=== PATIENT | male | born 1965 | race Caucasian/White ===

== ENCOUNTER 2017-12-07 14:49 | Inpatient (IN) | payer SELFPAY ==
[~2017-12-07] VITALS: Ht 188 cm; Wt 136.4 kg
[~2017-12-07 14:49] MED LIST: GABA100 PO; GEMF600 PO; INSU100I6; LISI5 PO; METF500 PO; NAPR550 PO; OXYACE5T PO; Percocet 5-3251 EACH PO; RXNAPNA550 PO; RXOXYACE PO; Zantac150 MG PO; Zofran Odt8 MG SL
[2017-12-07 15:41] LABS: Source, Urine Clean Catch
[2017-12-07 15:48] LABS: Appearance, Urine Hazy (Clear); Bilirubin, Urine Neg (Neg); Blood, Urine 4+ (Neg); Color, Urine Yellow (P-Yellow); Glucose Qualitative, Urine 4+ (Neg); Ketones, Urine 3+ (Neg); Leukocyte Esterase, Urine 1+ (Neg); Nitrite, Urine Neg (Neg); Protein, Urine 2+ (Neg); Specific Gravity, Urine 1.025 (1.003-1.022); Urobilinogen, Urine NORM (Normal)
[2017-12-07 16:07] LABS: Amorphous Mod (0-Heavy); Granular Casts 0-2 /lpf (0); Mucus Light (0-Heavy)
[2017-12-07 16:08] LABS: Bacteria Few /hpf; Squamous Epithelial Cells Few /hpf (Few)
[2017-12-07 16:52] LABS: BASOPHILS ABSOLUTE AUTO 0.05 K/mm3 (0.00-0.23); BASOPHILS PERCENT AUTO 0 % (0-2); EOSINOPHILS ABSOLUTE AUTO 0.12 K/mm3 (0.00-0.68); EOSINOPHILS PERCENT AUTO 1 % (0-6); Hematocrit 43.5 % (37.0-53.0); IMMATURE GRAN ABSOLUTE AUTO 0.12 K/mm3 (0.00-0.10); IMMATURE GRAN PERCENT AUTO 1 % (0-1); LYMPHOCYTES PERCENT AUTO 11 % (21-46); MONOCYTES ABSOLUTE AUTO 1.03 K/mm3 (0.16-1.47); MONOCYTES PERCENT AUTO 6 % (4-13); Mean Corpuscular Volume 90 fL (80-100); Mean Platelet Volume 10.1 fL (9.1-12.4); NEUTROPHILS ABSOLUTE AUTO 13.41 K/mm3 (1.96-9.15); NEUTROPHILS PERCENT AUTO 81 % (41-73); Platelet Count 280 K/mm3 (150-400); RDW Coefficient Variation 14.1 % (11.7-14.2); RDW Standard Deviation 45.7 fL (35.1-46.3); Red Blood Cell Count 4.82 M/mm3 (4.30-5.90); White Blood Cell Count 16.53 K/mm3 (4.00-11.30)
[2017-12-07 17:14] LABS: Mean Corpuscular HGB 31.2 pg (26.0-34.0)
[2017-12-07 17:15] LABS: Hemoglobin 14.7 g/dL (13.5-17.5); Mean Corpuscular HGB Conc 34.5 g/dL (31.5-36.5)
[2017-12-07 17:42] LABS: Alanine Aminotransfer (ALT/SGP 65 U/L (12-78); Albumin, Blood 3.3 g/dL (3.4-5.0); Albumin/Globulin Ratio 0.7 (0.8-1.8); Alk Phos 69 U/L (50-136); Anion Gap 9 mmol/L (6-16); Aspartate Aminotrans (AST/SGOT 160 U/L (12-37); Bilirubin, Total 0.6 mg/dL (0.1-1.0); Blood Urea Nitrogen 16 mg/dL (8-24); Bun/Creatinine Ratio 26.8 (12.0-20.0); CO2, Blood 21 mmol/L (21-32); Chloride, Blood 104 mmol/L (98-108); Globulin, Blood 4.8 g/dL (2.2-4.0); Glomerular Filtration Rate >60 (60-); Glucose, Blood 263 mg/dL (70-99); Sodium, Blood 134 mmol/L (136-145); Total Protein, Blood 8.1 g/dL (6.4-8.2)
[2017-12-07 17:46] LABS: Potassium, Blood 6.8 mmol/L (3.5-5.5)
[2017-12-07 18:50] LABS: Potassium, Blood 8.7 mmol/L (3.5-5.5)
[2017-12-07 19:30] LABS: Calcium, Ionized (POC) 0.97 mmol/L (1.10-1.46); Chloride (POC) 102 mmol/L (98-108); Creatinine (POC) 0.7 mg/dL (0.8-1.3); Glucose (ISTAT POC) 237 mg/dL (70-99); Potassium (POC) 4.8 mmol/L (3.5-5.5); Sodium (POC) 133 mmol/L (135-148); Total CO2 (POC) 25 mmol/L (21-32)
[2017-12-07 20:43] LABS: Cholesterol 212 mg/dL (50-200); Triglycerides 2318 mg/dL (30-160)
[2017-12-07 22:33] LABS: Albumin, Blood 2.9 g/dL (3.4-5.0); Anion Gap 10 mmol/L (6-16); Blood Urea Nitrogen 14 mg/dL (8-24); Bun/Creatinine Ratio 23.5 (12.0-20.0); CO2, Blood 20 mmol/L (21-32); Chloride, Blood 107 mmol/L (98-108); Glomerular Filtration Rate >60 (60-); Glucose, Blood 232 mg/dL (70-99); Phosphorus, Blood 3.5 mg/dL (2.5-4.9); Sodium, Blood 137 mmol/L (136-145)
[2017-12-07 22:49] LABS: Potassium, Blood 6.3 mmol/L (3.5-5.5)
[2017-12-07 23:39] LABS: International Normalized Ratio 1.07
[2017-12-08 02:31] LABS: BASOPHILS ABSOLUTE AUTO 0.04 K/mm3 (0.00-0.23); BASOPHILS PERCENT AUTO 0 % (0-2); EOSINOPHILS ABSOLUTE AUTO 0.15 K/mm3 (0.00-0.68); EOSINOPHILS PERCENT AUTO 1 % (0-6); Hematocrit 41.4 % (37.0-53.0); Hemoglobin 14.5 g/dL (13.5-17.5); IMMATURE GRAN ABSOLUTE AUTO 0.13 K/mm3 (0.00-0.10); IMMATURE GRAN PERCENT AUTO 1 % (0-1); LYMPHOCYTES ABSOLUTE AUTO 1.94 K/mm3 (0.84-5.20); LYMPHOCYTES PERCENT AUTO 13 % (21-46); MONOCYTES ABSOLUTE AUTO 0.85 K/mm3 (0.16-1.47); MONOCYTES PERCENT AUTO 6 % (4-13); Mean Corpuscular HGB 32.6 pg (26.0-34.0); Mean Platelet Volume 9.8 fL (9.1-12.4); NEUTROPHILS ABSOLUTE AUTO 11.71 K/mm3 (1.96-9.15); NEUTROPHILS PERCENT AUTO 79 % (41-73); Platelet Count 203 K/mm3 (150-400); RDW Coefficient Variation 14.1 % (11.7-14.2); RDW Standard Deviation 47.4 fL (35.1-46.3); Red Blood Cell Count 4.45 M/mm3 (4.30-5.90); White Blood Cell Count 14.82 K/mm3 (4.00-11.30)
[2017-12-08 02:43] LABS: Mean Corpuscular Volume 93 fL (80-100)
[2017-12-08 03:17] LABS: Alanine Aminotransfer (ALT/SGP 48 U/L (12-78); Albumin, Blood 3.1 g/dL (3.4-5.0); Albumin/Globulin Ratio 0.9 (0.8-1.8); Alk Phos 64 U/L (50-136); Anion Gap 12 mmol/L (6-16); Aspartate Aminotrans (AST/SGOT 37 U/L (12-37); Bilirubin, Total 0.7 mg/dL (0.1-1.0); Blood Urea Nitrogen 13 mg/dL (8-24); CO2, Blood 21 mmol/L (21-32); Calcium, Blood 7.7 mg/dL (8.5-10.1); Chloride, Blood 105 mmol/L (98-108); Creatinine, Blood 0.69 mg/dL (0.60-1.20); Globulin, Blood 3.4 g/dL (2.2-4.0); Glomerular Filtration Rate >60 (60-); Glucose, Blood 248 mg/dL (70-99); Phosphorus, Blood 2.7 mg/dL (2.5-4.9); Sodium, Blood 138 mmol/L (136-145); Total Protein, Blood 6.5 g/dL (6.4-8.2); Triglycerides 1081 mg/dL (30-160)
[2017-12-08 06:20] LABS: International Normalized Ratio 1.09; Prothrombin Time Results 11.2 Sec (9.7-11.5)
[2017-12-08 06:23] LABS: Albumin, Blood 2.9 g/dL (3.4-5.0); Anion Gap 7 mmol/L (6-16); Blood Urea Nitrogen 12 mg/dL (8-24); Bun/Creatinine Ratio 16.7 (12.0-20.0); CO2, Blood 26 mmol/L (21-32); Calcium, Blood 7.8 mg/dL (8.5-10.1); Chloride, Blood 103 mmol/L (98-108); Creatinine, Blood 0.72 mg/dL (0.60-1.20); Glomerular Filtration Rate >60 (60-); Glucose, Blood 211 mg/dL (70-99); Potassium, Blood 3.6 mmol/L (3.5-5.5); Sodium, Blood 136 mmol/L (136-145)
[2017-12-08 10:18] LABS: Albumin, Blood 2.8 g/dL (3.4-5.0); Anion Gap 9 mmol/L (6-16); Blood Urea Nitrogen 12 mg/dL (8-24); Bun/Creatinine Ratio 14.8 (12.0-20.0); CO2, Blood 25 mmol/L (21-32); Calcium, Blood 7.7 mg/dL (8.5-10.1); Chloride, Blood 102 mmol/L (98-108); Creatinine, Blood 0.81 mg/dL (0.60-1.20); Glomerular Filtration Rate >60 (60-); Glucose, Blood 275 mg/dL (70-99); Phosphorus, Blood 2.4 mg/dL (2.5-4.9); Potassium, Blood 3.8 mmol/L (3.5-5.5); Sodium, Blood 136 mmol/L (136-145)
[2017-12-09 04:07] LABS: Mean Platelet Volume 9.7 fL (9.1-12.4); Platelet Count 160 K/mm3 (150-400)
[2017-12-09 10:43] LABS: Triglycerides 581 mg/dL (30-160)
[2017-12-10 04:56] LABS: Triglycerides 615 mg/dL (30-160)
[2017-12-10 04:59] LABS: International Normalized Ratio 1.06; Prothrombin Time Results 10.9 Sec (9.7-11.5)
[2017-12-11 05:16] LABS: Hemoglobin 12.2 g/dL (13.5-17.5); Mean Platelet Volume 9.3 fL (9.1-12.4); Platelet Count 220 K/mm3 (150-400)
[2017-12-11 05:27] LABS: International Normalized Ratio 1.51; Prothrombin Time Results 15.2 Sec (9.7-11.5)
[2017-12-11 05:36] LABS: Alanine Aminotransfer (ALT/SGP 33 U/L (12-78); Albumin, Blood 2.6 g/dL (3.4-5.0); Albumin/Globulin Ratio 0.6 (0.8-1.8); Alk Phos 57 U/L (50-136); Anion Gap 9 mmol/L (6-16); Aspartate Aminotrans (AST/SGOT 45 U/L (12-37); Bilirubin, Total 0.5 mg/dL (0.1-1.0); Blood Urea Nitrogen 12 mg/dL (8-24); Bun/Creatinine Ratio 15.6 (12.0-20.0); CO2, Blood 26 mmol/L (21-32); Calcium, Blood 8.5 mg/dL (8.5-10.1); Chloride, Blood 103 mmol/L (98-108); Creatinine, Blood 0.77 mg/dL (0.60-1.20); Globulin, Blood 4.3 g/dL (2.2-4.0); Glomerular Filtration Rate >60 (60-); Glucose, Blood 202 mg/dL (70-99); Potassium, Blood 3.9 mmol/L (3.5-5.5); Sodium, Blood 138 mmol/L (136-145); Total Protein, Blood 6.9 g/dL (6.4-8.2)
[2017-12-12 05:18] LABS: International Normalized Ratio 2.62; Prothrombin Time Results 25.6 Sec (9.7-11.5)
[2017-12-12] MEDS ORDERED: Metformin HCl500 MG PO (14:33)
[2017-12-12] MEDS ORDERED: FAMO20 PO (14:33)
[2017-12-12] MEDS ORDERED: GEMF600 PO (14:33)
[2017-12-12] MEDS ORDERED: WARF4 PO (14:34)
== END 2017-12-12 15:31 | disposition home or self-care (01) | DRG 439 ==
LOC: ER 14:49 → ICUE 21:43 → ICUW 21:43 → ICUE 22:12 → MEDS 12-09 14:50 → ENPENDDIS 12-12 10:15 → MEDS 12-12 15:31
PROVIDERS: Emergency Medicine; Family Medicine; Internal Medicine; Internal Medicine Gastroenterology; Nurse Practitioner Acute Care
PROC: 0DJ08ZZ Inspection of Upper Intestinal Tract, Via Natural or Artificial Opening Endoscopic (ICD-10-PCS; principal; 2017-12-09 09:00)
DX: K85.90 Acute pancreatitis without necrosis or infection, unspecified (principal); I82.890 Acute embolism and thrombosis of other specified veins; K22.10 Ulcer of esophagus without bleeding; E78.1 Pure hyperglyceridemia; E11.65 Type 2 diabetes mellitus with hyperglycemia; G47.33 Obstructive sleep apnea (adult) (pediatric); I10 Essential (primary) hypertension; F17.210 Nicotine dependence, cigarettes, uncomplicated; R16.0 Hepatomegaly, not elsewhere classified; E66.01 Morbid (severe) obesity due to excess calories; Z68.38 Body mass index [BMI] 38.0-38.9, adult
CPT/HCPCS: 36415; 74177; 80047; 80048; 80053; 80069; 81001; 82465; 82947; 83036; 83605; 83690; 84100; 84132; 84478; 85014; 85018; 85025; 85049; 85610; 85730; 86140; 87040; 87086; 93005; 93010; 94640; 94660; 94762; 96361; 96374; 96375; 96376; 99285-25; J0696; J1644; J1650; J1815; J2250; J2405; J3010; J7030; J7042; J7060; J7120; Q9967

== ENCOUNTER → 2018-05-24 | Outpatient (CLI) | payer OTHER ==
[~2018-05-24] MED LIST changes: +FAMO20 PO; +Metformin HCl500 MG PO; +Percocet 10-321 EACH PO; +WARF4 PO
== END | disposition home or self-care (01) ==
LOC: LAB 14:09 → LAB SHORT 14:09
DX: E11.9 Type 2 diabetes mellitus without complications (principal); Z79.4 Long term (current) use of insulin
CPT/HCPCS: 82043

== ENCOUNTER 2019-03-03 19:24 | Emergency (ER) | payer OTHER ==
[~2019-03-03] VITALS: Ht 188 cm; Wt 131.5 kg
[2019-03-03] MEDS ORDERED: Keflex500 MG PO (21:33)
== END 2019-03-03 21:46 | disposition home or self-care (01) ==
LOC: ER 19:24
DX: L05.01 Pilonidal cyst with abscess (principal); F17.200 Nicotine dependence, unspecified, uncomplicated; Z79.899 Other long term (current) drug therapy; Z79.84 Long term (current) use of oral hypoglycemic drugs; Z79.01 Long term (current) use of anticoagulants
CPT/HCPCS: 10060; 99282-25; A9270

== ENCOUNTER 2019-03-04 04:26 | Inpatient (IN) | payer OTHER ==
[~2019-03-04] VITALS: Ht 188 cm; Wt 129.5 kg
[~2019-03-04 04:26] MED LIST changes: +Keflex500 MG PO
[2019-03-04 05:37] LABS: Source, Urine Voided
[2019-03-04 05:46] LABS: Blood, Urine 3+ (Neg); Glucose Qualitative, Urine 3+ (Neg); Ketones, Urine 3+ (Neg); Leukocyte Esterase, Urine 1+ (Neg); Nitrite, Urine Pos (Neg); Protein, Urine 3+ (Neg); Urobilinogen, Urine 1+ (Normal)
[2019-03-04 06:10] LABS: BASOPHILS ABSOLUTE AUTO 0.05 K/mm3 (0.00-0.23); BASOPHILS PERCENT AUTO 0 % (0-2); EOSINOPHILS ABSOLUTE AUTO 0.14 K/mm3 (0.00-0.68); EOSINOPHILS PERCENT AUTO 1 % (0-6); Hematocrit 43.5 % (37.0-53.0); IMMATURE GRAN ABSOLUTE AUTO 0.07 K/mm3 (0.00-0.10); IMMATURE GRAN PERCENT AUTO 1 % (0-1); LYMPHOCYTES ABSOLUTE AUTO 1.64 K/mm3 (0.84-5.20); LYMPHOCYTES PERCENT AUTO 12 % (21-46); MONOCYTES PERCENT AUTO 6 % (4-13); Mean Corpuscular HGB 31.2 pg (26.0-34.0); Mean Corpuscular HGB Conc 33.8 g/dL (31.5-36.5); Mean Corpuscular Volume 92 fL (80-100); Mean Platelet Volume 10.3 fL (9.1-12.4); NEUTROPHILS ABSOLUTE AUTO 10.91 K/mm3 (1.96-9.15); NEUTROPHILS PERCENT AUTO 80 % (41-73); NRBC ABSOLUTE 0.04 K/mm3 (0.00-0.02); NRBC Auto 0.3 /100 WBC (0.0-0.2); Platelet Count 314 K/mm3 (150-400); RDW Coefficient Variation 14.6 % (11.7-14.2); RDW Standard Deviation 48.4 fL (35.1-46.3); Red Blood Cell Count 4.71 M/mm3 (4.30-5.90); White Blood Cell Count 13.61 K/mm3 (4.00-11.30)
[2019-03-04 06:12] LABS: Bilirubin, Urine 1+ (Neg)
[2019-03-04 06:13] LABS: Appearance, Urine Cloudy (Clear); Color, Urine Amber (P-Yellow)
[2019-03-04 06:14] LABS: U Amphetamine Screen Not Detected; U Barbituate Screen Not Detected; U Benzodiazapine Screen Not Detected; U Buprenorphine Screen Not Detected; U Cannabinoids Screen Not Detected; U Cocaine Screen Not Detected; U Methadone Screen Not Detected; U Methamphetamine Screen Not Detected; U Opiates Screen Not Detected; U Oxycodone Screen DETECTED; U Phencyclidine Screen Not Detected; U Propoxyphene Screen Not Detected
[2019-03-04 06:16] LABS: Amorphous Heavy (0-Heavy); Bacteria Mod /hpf; Red Blood Cells, Urine 0-2 /hpf (0-2); Squamous Epithelial Cells Rare /hpf (Few); White Blood Cells, Urine 0-2 /hpf (0-5)
[2019-03-04 06:20] LABS: Hemoglobin 14.7 g/dL (13.5-17.5)
[2019-03-04 06:30] LABS: Alanine Aminotransfer (ALT/SGP 25 U/L (12-78); Albumin, Blood 3.7 g/dL (3.4-5.0); Alk Phos 77 U/L (50-136); Anion Gap 10 mmol/L (6-16); Aspartate Aminotrans (AST/SGOT 25 U/L (12-37); Bilirubin, Total 0.7 mg/dL (0.1-1.0); Blood Urea Nitrogen 11 mg/dL (8-24); Bun/Creatinine Ratio 14.1 (12.0-20.0); CO2, Blood 23 mmol/L (21-32); Calcium, Blood 8.4 mg/dL (8.5-10.1); Chloride, Blood 104 mmol/L (98-108); Creatinine, Blood 0.78 mg/dL (0.60-1.20); Ethanol (Alcohol), Blood, Med <3 mg/dL; Globulin, Blood 3.8 g/dL (2.2-4.0); Glomerular Filtration Rate >60 (60-); Glucose, Blood 225 mg/dL (70-99); Sodium, Blood 137 mmol/L (136-145); Total Protein, Blood 7.5 g/dL (6.4-8.2)
[2019-03-04 09:51] LABS: CHOL/HDL RATIO 6.3; Cholesterol 95 mg/dL (50-200); HDL Cholesterol 15 mg/dL (>39); LDL/HDL RATIO Unable to Calculate; Triglycerides 519 mg/dL (30-160); Very Low Density Lipoprot Chol 104 mg/dL (6-32)
[2019-03-04 09:53] LABS: Low Density Lipoprotein Chol Unable to Calculate mg/dL (0-110)
--- NOTE | 2019-03-04 18:11 | NUR ---
SHIFT SUMMARY PATIENT IS PLEASANT, NO ACUTE CONCERNS AT THIS TIME. PATIENT IS NEW ADMIT FROM THE ER TODAY. HE IS NPO DUE TO PANCREATITIS. HE HAS A BOIL THAT WAS LANCED ON HIS BOTTOM AND IS CURRENTLY DRESSED.
--- NOTE | 2019-03-05 05:40 | NUR ---
SUMMARY: A/OX4, INDEPENDENT IN ROOM AND CALLS APPROPRIATELY. HE REMAINS NPO X ICE W/NS INFUSING AT 125 ML/HR. CHEMBG'S ARE STABLE. DILUADID RECIEVED X2 DOSES FOR TOLERABLE CONTROL OF ABDO PAIN. PT DENIES N/V. HE REMAINED ON 2L O2, FAMILY STILL NEEDS TO BRING IN HOME CPAP AND PT AWARE. DX REMAINS C/D/I TO BUTTOCKS WHERE BOIL WAS LANCED IN ER. MD TO WRITE DX CHANGE ORDERS TODAY. NO ACUTE CHANGES, VSS/AFEBRILE. WCTM AND REPORT TO DAY RN.
[2019-03-05 05:47] LABS: BASOPHILS ABSOLUTE AUTO 0.03 K/mm3 (0.00-0.23); BASOPHILS PERCENT AUTO 0 % (0-2); EOSINOPHILS PERCENT AUTO 1 % (0-6); Hematocrit 41.9 % (37.0-53.0); IMMATURE GRAN ABSOLUTE AUTO 0.06 K/mm3 (0.00-0.10); IMMATURE GRAN PERCENT AUTO 1 % (0-1); LYMPHOCYTES ABSOLUTE AUTO 1.29 K/mm3 (0.84-5.20); LYMPHOCYTES PERCENT AUTO 11 % (21-46); MONOCYTES ABSOLUTE AUTO 1.06 K/mm3 (0.16-1.47); MONOCYTES PERCENT AUTO 9 % (4-13); Mean Corpuscular HGB 32.1 pg (26.0-34.0); Mean Corpuscular HGB Conc 33.4 g/dL (31.5-36.5); Mean Platelet Volume 9.9 fL (9.1-12.4); NEUTROPHILS ABSOLUTE AUTO 9.62 K/mm3 (1.96-9.15); NEUTROPHILS PERCENT AUTO 79 % (41-73); Platelet Count 161 K/mm3 (150-400); RDW Coefficient Variation 14.3 % (11.7-14.2); RDW Standard Deviation 50.9 fL (35.1-46.3); Red Blood Cell Count 4.36 M/mm3 (4.30-5.90); White Blood Cell Count 12.16 K/mm3 (4.00-11.30)
[2019-03-05 05:49] LABS: Mean Corpuscular Volume 96 fL (80-100)
[2019-03-05 06:08] LABS: Albumin, Blood 2.8 g/dL (3.4-5.0); Anion Gap 5 mmol/L (6-16); Blood Urea Nitrogen 8 mg/dL (8-24); Bun/Creatinine Ratio 10.3 (12.0-20.0); CO2, Blood 27 mmol/L (21-32); Calcium, Blood 8.2 mg/dL (8.5-10.1); Chloride, Blood 104 mmol/L (98-108); Creatinine, Blood 0.77 mg/dL (0.60-1.20); Glomerular Filtration Rate >60 (60-); Glucose, Blood 188 mg/dL (70-99); Sodium, Blood 136 mmol/L (136-145)
--- NOTE | 2019-03-05 06:11 | NUR ---
LIPASE VASTLY IMPROVED AND NOW 1111. IT WAS 18,182 BEFORE.
--- NOTE | 2019-03-05 18:17 | NUR ---
SHIFT SUMMARY PATIENT IS PLEASANT, ALERT AND ORIENTED. HE HAS SPENT A LONG TIME SLEEPING TODAY HE STATES HE FEELS BETTER. HE IS NO LONGER CONNECTED TO CONTINUOUS FLUIDS. HE IS ON A CLEAR LIQUID DIET AND HAS BLOOD SUGARS CHANGED TO AC/HS.
[2019-03-06 05:47] LABS: BASOPHILS ABSOLUTE AUTO 0.03 K/mm3 (0.00-0.23); BASOPHILS PERCENT AUTO 0 % (0-2); EOSINOPHILS ABSOLUTE AUTO 0.24 K/mm3 (0.00-0.68); EOSINOPHILS PERCENT AUTO 3 % (0-6); Hematocrit 40.3 % (37.0-53.0); Hemoglobin 13.2 g/dL (13.5-17.5); IMMATURE GRAN ABSOLUTE AUTO 0.04 K/mm3 (0.00-0.10); IMMATURE GRAN PERCENT AUTO 1 % (0-1); LYMPHOCYTES ABSOLUTE AUTO 1.67 K/mm3 (0.84-5.20); LYMPHOCYTES PERCENT AUTO 22 % (21-46); MONOCYTES ABSOLUTE AUTO 0.58 K/mm3 (0.16-1.47); MONOCYTES PERCENT AUTO 8 % (4-13); Mean Corpuscular HGB 31.3 pg (26.0-34.0); Mean Corpuscular HGB Conc 32.8 g/dL (31.5-36.5); Mean Corpuscular Volume 96 fL (80-100); Mean Platelet Volume 9.7 fL (9.1-12.4); NEUTROPHILS PERCENT AUTO 66 % (41-73); Platelet Count 161 K/mm3 (150-400); RDW Coefficient Variation 14.3 % (11.7-14.2); RDW Standard Deviation 50.4 fL (35.1-46.3); Red Blood Cell Count 4.22 M/mm3 (4.30-5.90); White Blood Cell Count 7.56 K/mm3 (4.00-11.30)
[2019-03-06 06:03] LABS: Albumin, Blood 2.8 g/dL (3.4-5.0); Anion Gap 6 mmol/L (6-16); Blood Urea Nitrogen 11 mg/dL (8-24); Bun/Creatinine Ratio 17.4 (12.0-20.0); CO2, Blood 25 mmol/L (21-32); Calcium, Blood 8.7 mg/dL (8.5-10.1); Chloride, Blood 106 mmol/L (98-108); Creatinine, Blood 0.63 mg/dL (0.60-1.20); Glomerular Filtration Rate >60 (60-); Glucose, Blood 188 mg/dL (70-99); Phosphorus, Blood 2.3 mg/dL (2.5-4.9); Potassium, Blood 3.6 mmol/L (3.5-5.5); Sodium, Blood 137 mmol/L (136-145)
[2019-03-06] MEDS ORDERED: CEPH500 PO (14:52)
[2019-03-06] MEDS ORDERED: FAMO20 PO (14:53)
[2019-03-06] MEDS ORDERED: METF500 PO (14:54)
[2019-03-06] MEDS ORDERED: MOTION RELIEF25 MG PO (14:55)
[2019-03-06] MEDS ORDERED: Lipitor20 MG PO (14:56)
--- NOTE | 2019-03-06 15:19 | NUR ---
PATIENT DISCHARGE: PATIENT DISCHARGED TO HOME THIS SHIFT. MEDICATION RECONCILIATION COMPLETED; MED LIST FAXED TO [facility]. DISCHARGE EDUCATION COMPLETED WITH PATIENT. PATIENT INDEPENDENT; PATIENT REFUSED WHEELCHAIR TRANSPORT; PATIENT DEPARTED MEDICAL FLOOR AT 1519. PATIENT DEPARTED [facility] VIA PRIVATE AUTO.
== END 2019-03-06 15:18 | disposition home or self-care (01) | DRG 440 ==
LOC: ER 04:26 → MEDS 09:26 → ERHOLD 09:27 → MEDS 15:41
PROVIDERS: Emergency Medicine; ADMIT Internal Medicine
DX: K85.90 Acute pancreatitis without necrosis or infection, unspecified (principal); E78.1 Pure hyperglyceridemia; E11.9 Type 2 diabetes mellitus without complications; I10 Essential (primary) hypertension; G47.30 Sleep apnea, unspecified; E66.01 Morbid (severe) obesity due to excess calories; F17.210 Nicotine dependence, cigarettes, uncomplicated; Z68.37 Body mass index [BMI] 37.0-37.9, adult
CPT/HCPCS: 36415; 74177; 80053; 80061; 80069; 81001; 82947; 83036; 83690; 85025; 87086; 96361; 96365-59; 96375; 99285-25; C9113; G0480; J0690; J1170; J1650; J1885; J2405; J7030; J7060; Q9967

== ENCOUNTER 2019-03-13 06:27 | Inpatient (IN) | payer OTHER ==
[~2019-03-13] VITALS: Ht 188 cm; Wt 127.0 kg
[~2019-03-13 06:27] MED LIST changes: +CEPH500 PO; +Lipitor20 MG PO; +MOTION RELIEF25 MG PO
[2019-03-13 09:15] LABS: BASOPHILS ABSOLUTE AUTO 0.03 K/mm3 (0.00-0.23); BASOPHILS PERCENT AUTO 0 % (0-2); EOSINOPHILS PERCENT AUTO 2 % (0-6); Hematocrit 37.8 % (37.0-53.0); IMMATURE GRAN PERCENT AUTO 1 % (0-1); LYMPHOCYTES ABSOLUTE AUTO 1.65 K/mm3 (0.84-5.20); LYMPHOCYTES PERCENT AUTO 12 % (21-46); MONOCYTES ABSOLUTE AUTO 0.97 K/mm3 (0.16-1.47); MONOCYTES PERCENT AUTO 7 % (4-13); Mean Corpuscular HGB 31.4 pg (26.0-34.0); Mean Corpuscular HGB Conc 33.3 g/dL (31.5-36.5); Mean Corpuscular Volume 94 fL (80-100); Mean Platelet Volume 10.4 fL (9.1-12.4); NEUTROPHILS ABSOLUTE AUTO 10.33 K/mm3 (1.96-9.15); NEUTROPHILS PERCENT AUTO 78 % (41-73); NRBC ABSOLUTE 0.08 K/mm3 (0.00-0.02); NRBC Auto 0.6 /100 WBC (0.0-0.2); Platelet Count 278 K/mm3 (150-400); RDW Coefficient Variation 14.1 % (11.7-14.2); RDW Standard Deviation 48.5 fL (35.1-46.3); Red Blood Cell Count 4.01 M/mm3 (4.30-5.90); White Blood Cell Count 13.28 K/mm3 (4.00-11.30)
[2019-03-13 09:19] LABS: Hemoglobin 12.6 g/dL (13.5-17.5)
[2019-03-13 10:01] LABS: Alanine Aminotransfer (ALT/SGP 30 U/L (12-78); Albumin, Blood 3.4 g/dL (3.4-5.0); Albumin/Globulin Ratio 1.1 (0.8-1.8); Alk Phos 76 U/L (50-136); Anion Gap 8 mmol/L (6-16); Aspartate Aminotrans (AST/SGOT 23 U/L (12-37); Bilirubin, Total 0.6 mg/dL (0.1-1.0); Blood Urea Nitrogen 19 mg/dL (8-24); Bun/Creatinine Ratio 25.9 (12.0-20.0); CO2, Blood 25 mmol/L (21-32); Calcium, Blood 8.2 mg/dL (8.5-10.1); Chloride, Blood 105 mmol/L (98-108); Creatinine, Blood 0.73 mg/dL (0.60-1.20); Globulin, Blood 3.1 g/dL (2.2-4.0); Glomerular Filtration Rate >60 (60-); Glucose, Blood 267 mg/dL (70-99); Potassium, Blood 4.2 mmol/L (3.5-5.5); Sodium, Blood 138 mmol/L (136-145); Total Protein, Blood 6.5 g/dL (6.4-8.2)
[2019-03-13 11:35] LABS: CHOL/HDL RATIO 5.5; Cholesterol 66 mg/dL (50-200); HDL Cholesterol 12 mg/dL (>39); LDL/HDL RATIO Unable to Calculate; Low Density Lipoprotein Chol Unable to Calculate mg/dL (0-110); Triglycerides 473 mg/dL (30-160); Very Low Density Lipoprot Chol Unable to Calculate mg/dL (6-32)
--- NOTE | 2019-03-13 18:24 | NUR ---
SHIFT SUMMARY: PT ADMITTED FROM THE ED THIS AFTERNOON. PT WAS FATIGUED UPON ARRIVAL BUT REPORTS THAT HIS NAUSEA AND PAIN HAVE SUBSIDED SINCE HIS ARRIVAL IN THE ER. PT HAS BEEN RESTING IN BED SINCE HIS ARRIVAL AND HAS HAD A COUPLE VISITORS. HE USES CALL LIGHT FOR HELP WHEN NEEED.
--- NOTE | 2019-03-14 05:25 | NUR ---
PT continues with very poor oral intake, he was medicated for nausea x 2 with zofran and x 2 with 5 mg oxycodone. PT was in hospital for a week dc home after 1 week andhome 1 week back with acute on chronic pancreatitis. Counselled that smoking worsens pancreatitis. Current everyday smoker, cessation encouraged.
[2019-03-14 05:31] LABS: BASOPHILS ABSOLUTE AUTO 0.05 K/mm3 (0.00-0.23); BASOPHILS PERCENT AUTO 0 % (0-2); EOSINOPHILS ABSOLUTE AUTO 0.04 K/mm3 (0.00-0.68); EOSINOPHILS PERCENT AUTO 0 % (0-6); Hematocrit 42.3 % (37.0-53.0); Hemoglobin 14.3 g/dL (13.5-17.5); IMMATURE GRAN ABSOLUTE AUTO 0.19 K/mm3 (0.00-0.10); IMMATURE GRAN PERCENT AUTO 1 % (0-1); LYMPHOCYTES ABSOLUTE AUTO 1.28 K/mm3 (0.84-5.20); LYMPHOCYTES PERCENT AUTO 6 % (21-46); MONOCYTES ABSOLUTE AUTO 1.42 K/mm3 (0.16-1.47); MONOCYTES PERCENT AUTO 6 % (4-13); Mean Corpuscular HGB Conc 33.8 g/dL (31.5-36.5); Mean Corpuscular Volume 92 fL (80-100); Mean Platelet Volume 9.8 fL (9.1-12.4); NEUTROPHILS ABSOLUTE AUTO 20.44 K/mm3 (1.96-9.15); NEUTROPHILS PERCENT AUTO 87 % (41-73); Platelet Count 184 K/mm3 (150-400); RDW Coefficient Variation 13.7 % (11.7-14.2); RDW Standard Deviation 46.5 fL (35.1-46.3); Red Blood Cell Count 4.61 M/mm3 (4.30-5.90); White Blood Cell Count 23.42 K/mm3 (4.00-11.30)
[2019-03-14 06:15] LABS: Anion Gap 8 mmol/L (6-16); Blood Urea Nitrogen 10 mg/dL (8-24); Bun/Creatinine Ratio 14.7 (12.0-20.0); CO2, Blood 24 mmol/L (21-32); Calcium, Blood 8.3 mg/dL (8.5-10.1); Chloride, Blood 103 mmol/L (98-108); Creatinine, Blood 0.68 mg/dL (0.60-1.20); Glomerular Filtration Rate >60 (60-); Glucose, Blood 225 mg/dL (70-99); Potassium, Blood 3.9 mmol/L (3.5-5.5); Sodium, Blood 135 mmol/L (136-145)
--- NOTE | 2019-03-14 17:24 | NUR ---
SHIFT SUMMARY: PT IS A/O X 4 TODAY WITH ONGOING C/O AB PAIN FOR WHICH HE REPORTS THE PAIN MEDS ARE EFFECTIVE. HE C/O NAUSEA X 1 AND ZOFRAN WAS GIVEN ORDERED AND EFFECTIVE. PT IS IND IN HIS ROOM AND VOIDS IN THE TOILET. PT HAS SLEPT MOST OF THE DAY AND IS ABLE TO MAKE HIS NEEDS KNOWN. PT CONTINUES TO HAVE A POOR APPETITE BUT DECLINES MOST OF HIS TRAY STATING "IM AFRAID IF I EAT ILL START TO FEEL BAD AGAIN". PLANS TO DC PT HOME TOMORROW.
--- NOTE | 2019-03-15 06:19 | NUR ---
PT tolerating diet and pain well controlled on oral med oxycodone 5 mg x 1 . Blood glucose remains elevated greater than 200 on BG checks AC. PT has JOEY not wearing cpap sats greater than 90% room air. Minimal nausea, zofran IV x 1 for mild nausea.
[2019-03-15] MEDS ORDERED: METF500 PO (12:05)
--- NOTE | 2019-03-15 13:16 | NUR ---
DISCHARGE NOTE PT DISCHARGE AMBULATORY POV WITH SELF TO HOME. PT DENIES ANY PAIN OR DISTRESS. WORK NOTE PROVIDED. FOLLOW UP APPT SCHEDULED FOR 03/16 AND PT GIVEN WRITTEN INSTRUCTIONS AND VERBALIZED UNDERSTANDING ON TAKING MEDICATIONS PRESCRIBED. PT DIRECTED TO HOLD LIPITOR UNTIL HE DISCUSSES FURTHER TREATMENT WITH HIS PCP. ALL BELONGINGS SENT HOME WITH PT AT TIME OF DISCHARGE.
== END 2019-03-15 13:33 | disposition home or self-care (01) | DRG 440 ==
LOC: ER 06:27 → MEDS 11:07 → ENPENDDIS 03-15 11:15 → MEDS 03-15 13:33
PROVIDERS: Emergency Medicine; ADMIT Hospitalist
DX: K85.90 Acute pancreatitis without necrosis or infection, unspecified (principal); F17.210 Nicotine dependence, cigarettes, uncomplicated; E66.01 Morbid (severe) obesity due to excess calories; G47.33 Obstructive sleep apnea (adult) (pediatric); Z68.35 Body mass index [BMI] 35.0-35.9, adult; D72.829 Elevated white blood cell count, unspecified; E78.1 Pure hyperglyceridemia; E11.9 Type 2 diabetes mellitus without complications; Z79.84 Long term (current) use of oral hypoglycemic drugs
CPT/HCPCS: 36415; 80048; 80053; 80061; 82947; 83690; 85025; 96361; 96374; 96375; 96376; 99284-25; J1170; J1650; J2270; J2405; J7120

== ENCOUNTER → 2019-04-22 | Outpatient (CLI) | payer OTHER | END | disposition home or self-care (01) | LOC: LAB SHORT 17:10 → LAB 17:10 | DX: L02.33 Carbuncle of buttock (principal); L02.32 Furuncle of buttock | CPT/HCPCS: 87070; 87075; 87205 ==

== ENCOUNTER 2019-09-07 17:04 | Inpatient (IN) | payer OTHER ==
[~2019-09-07] VITALS: Ht 188 cm; Wt 125.2 kg
[2019-09-07 17:33] LABS: BASOPHILS ABSOLUTE AUTO 0.05 K/mm3 (0.00-0.23); BASOPHILS PERCENT AUTO 0 % (0-2); EOSINOPHILS ABSOLUTE AUTO 0.09 K/mm3 (0.00-0.68); EOSINOPHILS PERCENT AUTO 1 % (0-6); Hemoglobin 16.5 g/dL (13.5-17.5); IMMATURE GRAN ABSOLUTE AUTO 0.11 K/mm3 (0.00-0.10); IMMATURE GRAN PERCENT AUTO 1 % (0-1); LYMPHOCYTES ABSOLUTE AUTO 2.24 K/mm3 (0.84-5.20); LYMPHOCYTES PERCENT AUTO 12 % (21-46); MONOCYTES ABSOLUTE AUTO 1.55 K/mm3 (0.16-1.47); MONOCYTES PERCENT AUTO 8 % (4-13); Mean Corpuscular HGB 31.1 pg (26.0-34.0); Mean Corpuscular HGB Conc 35.1 g/dL (31.5-36.5); Mean Corpuscular Volume 89 fL (80-100); Mean Platelet Volume 10.4 fL (9.1-12.4); NEUTROPHILS ABSOLUTE AUTO 15.25 K/mm3 (1.96-9.15); NEUTROPHILS PERCENT AUTO 79 % (41-73); Platelet Count 201 K/mm3 (150-400); RDW Coefficient Variation 14.3 % (11.7-14.2); RDW Standard Deviation 45.7 fL (35.1-46.3); White Blood Cell Count 19.29 K/mm3 (4.00-11.30)
[2019-09-07 18:25] LABS: Magnesium, Blood 1.7 mg/dL (1.6-2.4)
[2019-09-07 20:12] LABS: Alanine Aminotransfer (ALT/SGP 26 U/L (12-78); Albumin, Blood 3.3 g/dL (3.4-5.0); Albumin/Globulin Ratio 0.8 (0.8-1.8); Alk Phos 51 U/L (50-136); Anion Gap 8 mmol/L (6-16); Aspartate Aminotrans (AST/SGOT 29 U/L (12-37); Beta-hydroxybutyrate 10.1 mg/dL (0.2-2.8); Bilirubin, Total 1.3 mg/dL (0.1-1.0); Blood Urea Nitrogen 14 mg/dL (8-24); CO2, Blood 24 mmol/L (21-32); Calcium, Blood 8.3 mg/dL (8.5-10.1); Chloride, Blood 101 mmol/L (98-108); Creatinine, Blood 0.74 mg/dL (0.60-1.20); Globulin, Blood 4.1 g/dL (2.2-4.0); Glomerular Filtration Rate >60 (60-); Glucose, Blood 311 mg/dL (70-99); Sodium, Blood 133 mmol/L (136-145); Total Protein, Blood 7.4 g/dL (6.4-8.2)
[2019-09-07] MEDS ORDERED: ATOR80 PO (21:28)
[2019-09-07] MEDS ORDERED: Prinivil10 MG PO (21:29)
[2019-09-07] MEDS ORDERED: METF500 PO (21:30)
[2019-09-07] MEDS ORDERED: SERT25 PO (21:31)
[2019-09-07] MEDS ORDERED: LEVEMIR FL100 UNIT/1 SC (21:32)
[2019-09-07] MEDS ORDERED: INSDET100 SC (21:32)
[2019-09-07] MEDS ORDERED: FENO160 PO (21:33)
[2019-09-07] MEDS ORDERED: ASCO500 PO (21:34)
[2019-09-07] MEDS ORDERED: VITAMIN D350 MCG PO (21:34)
[2019-09-07] MEDS ORDERED: Aspir 8181 MG PO (21:34)
[2019-09-07] MEDS ORDERED: CO Q-10100 MG PO (21:34)
[2019-09-07 22:08] LABS: Cholesterol 228 mg/dL (50-200)
[2019-09-07 22:11] LABS: CHOL/HDL RATIO Unable to Calculate; LDL/HDL RATIO Unable to Calculate; Low Density Lipoprotein Chol Unable to Calculate mg/dL (0-110); Triglycerides 1519 mg/dL (30-160); Very Low Density Lipoprot Chol 304 mg/dL (6-32)
[2019-09-08 04:18] LABS: Hematocrit 40.5 % (37.0-53.0); Hemoglobin 13.8 g/dL (13.5-17.5); Mean Corpuscular HGB 30.9 pg (26.0-34.0); Mean Corpuscular HGB Conc 34.1 g/dL (31.5-36.5); Mean Corpuscular Volume 91 fL (80-100); Mean Platelet Volume 10.3 fL (9.1-12.4); Platelet Count 152 K/mm3 (150-400); RDW Coefficient Variation 14.5 % (11.7-14.2); RDW Standard Deviation 47.7 fL (35.1-46.3); Red Blood Cell Count 4.47 M/mm3 (4.30-5.90); White Blood Cell Count 13.35 K/mm3 (4.00-11.30)
--- NOTE | 2019-09-08 04:35 | NUR ---
SHIFT SUMMARY PT NEW ED ADMIT THIS EVENING. DX OF PANCREATITIS. PT HAS A HX OF PANCREATITIS. PT REPORTED BILATERAL UPPER QUADRANT ABD PAIN. TENDER WITH PALPATION. MEDICATED X 1 W/ 25 MCG FENTANYL. ZOFRAN ALSO GIVEN FOR FOR SLIGHT NAUSEA. PT IS A/O, INDEPENDENT IN THE ROOM. CPAP AT [facility]. CONTINUOUS BIOX ON. VITAL SIGNS STABLE. NS RUNNING AT 125/HR. PT NPO EXCEPT ORDERED LOPID AND A SMALL SIP OF WATER TO SWALLOW PILL. PT SLEPT MOST OF THE NIGHT AFTER ADMISSION AND MEDICATION. WILL CONTINUE TO MONITOR.
[2019-09-08 04:49] LABS: Alanine Aminotransfer (ALT/SGP 23 U/L (12-78); Albumin/Globulin Ratio 0.9 (0.8-1.8); Alk Phos 54 U/L (50-136); Anion Gap 7 mmol/L (6-16); Aspartate Aminotrans (AST/SGOT 11 U/L (12-37); Bilirubin, Total 0.7 mg/dL (0.1-1.0); Blood Urea Nitrogen 13 mg/dL (8-24); Bun/Creatinine Ratio 18.4 (12.0-20.0); CO2, Blood 25 mmol/L (21-32); Chloride, Blood 105 mmol/L (98-108); Creatinine, Blood 0.71 mg/dL (0.60-1.20); Globulin, Blood 3.4 g/dL (2.2-4.0); Glomerular Filtration Rate >60 (60-); Glucose, Blood 227 mg/dL (70-99); Potassium, Blood 3.7 mmol/L (3.5-5.5); Sodium, Blood 137 mmol/L (136-145); Total Protein, Blood 6.4 g/dL (6.4-8.2)
[2019-09-08 08:09] LABS: Cholesterol 220 mg/dL (50-200)
[2019-09-08 08:20] LABS: CHOL/HDL RATIO Unable to Calculate; LDL/HDL RATIO Unable to Calculate; Low Density Lipoprotein Chol Unable to Calculate mg/dL (0-110); Triglycerides 1024 mg/dL (30-160); Very Low Density Lipoprot Chol 205 mg/dL (6-32)
--- NOTE | 2019-09-08 17:02 | NUR ---
PATIENT HAD AN UNEVENTFUL SHIFT, ONLY COMPLAINED OF PAIN AND NAUSEA ONCE THIS SHIFT. PAIN MEDICATION WAS EFFECTIVE. VITALS STABLE. PATIENT CONTINUES ON IV FLUIDS FOR HYDRATION AND IS NPO. PATIENT IS PLEASANT AND COOPERATIVE WITH STAFF. WILL CONTINUE TO MONITOR AND PROVIDE CARE NEEDED,
--- NOTE | 2019-09-09 02:33 | NUR ---
PHYSICIAN COMMUNICATION CONTACTED THE EXTRACORPOREAL TECHNICIAN PHYSICIAN, DR BRADLEY, TO INFORM HIM THAT THE PATIENT WAS REQUESTING A NICOTINE PATCH. DR BRADLEY ORDERED A 21 MG PATCH DAILY.
[2019-09-09 05:18] LABS: BASOPHILS ABSOLUTE AUTO 0.02 K/mm3 (0.00-0.23); BASOPHILS PERCENT AUTO 0 % (0-2); EOSINOPHILS ABSOLUTE AUTO 0.22 K/mm3 (0.00-0.68); EOSINOPHILS PERCENT AUTO 3 % (0-6); Hematocrit 37.8 % (37.0-53.0); Hemoglobin 12.4 g/dL (13.5-17.5); IMMATURE GRAN ABSOLUTE AUTO 0.03 K/mm3 (0.00-0.10); IMMATURE GRAN PERCENT AUTO 0 % (0-1); LYMPHOCYTES PERCENT AUTO 24 % (21-46); MONOCYTES ABSOLUTE AUTO 0.66 K/mm3 (0.16-1.47); MONOCYTES PERCENT AUTO 8 % (4-13); Mean Corpuscular HGB 30.8 pg (26.0-34.0); Mean Corpuscular HGB Conc 32.8 g/dL (31.5-36.5); Mean Corpuscular Volume 94 fL (80-100); Mean Platelet Volume 10.2 fL (9.1-12.4); NEUTROPHILS ABSOLUTE AUTO 5.24 K/mm3 (1.96-9.15); NEUTROPHILS PERCENT AUTO 65 % (41-73); Platelet Count 153 K/mm3 (150-400); RDW Coefficient Variation 14.7 % (11.7-14.2); RDW Standard Deviation 51.5 fL (35.1-46.3); Red Blood Cell Count 4.03 M/mm3 (4.30-5.90); White Blood Cell Count 8.07 K/mm3 (4.00-11.30)
[2019-09-09 05:39] LABS: Albumin, Blood 2.6 g/dL (3.4-5.0); Anion Gap 6 mmol/L (6-16); Blood Urea Nitrogen 16 mg/dL (8-24); Bun/Creatinine Ratio 23.4 (12.0-20.0); CHOL/HDL RATIO 12.5; CO2, Blood 25 mmol/L (21-32); Calcium, Blood 7.8 mg/dL (8.5-10.1); Chloride, Blood 108 mmol/L (98-108); Cholesterol 200 mg/dL (50-200); Creatinine, Blood 0.69 mg/dL (0.60-1.20); Glomerular Filtration Rate >60 (60-); Glucose, Blood 146 mg/dL (70-99); HDL Cholesterol 16 mg/dL (>39); LDL/HDL RATIO Unable to Calculate; Low Density Lipoprotein Chol Unable to Calculate mg/dL (0-110); Phosphorus, Blood 2.4 mg/dL (2.5-4.9); Potassium, Blood 3.6 mmol/L (3.5-5.5); Sodium, Blood 139 mmol/L (136-145); Triglycerides 671 mg/dL (30-160); Very Low Density Lipoprot Chol Unable to Calculate mg/dL (6-32)
--- NOTE | 2019-09-09 07:08 | NUR ---
SHIFT SUMMARY PATIENT ALERT AND ORIENTED X 4. HAD NO COMPLAINTS OF PAIN OVERNIGHT. WAS ABLE TO SLEEP WELL ONCE HE GOT TO SLEEP ABOUT 0100. IV PATENT AND INFUSING, DRESSING CHANGED. BED IN LOWEST POSITION WITH WHEELS LOCKED. CALL LIGHT SCOTT MADDEN. REPORT GIVEN TO ONCOMING RN.
--- NOTE | 2019-09-09 07:56 | NUR ---
INFORMED PATIENT THAT AFTER BREAKFAST TIME HE WILL BE MOVED TO ROOM 328. HE IS FINE WITH THIS MOVE.
--- NOTE | 2019-09-09 18:41 | NUR ---
SHIFT SUMMARY- PT TRANSFERED TO MEDICAL FLOOR FROM [facility] (ALSO ON MEDICAL FLOOR). PT ALERT ORIENTED AND INDEPENDENT IN THE ROOM. CONTINENT OF BOWEL AND BLADDER. AT LEAST TWO BMS THIS SHIFT. PT DIET ADVANCED TOLLERATED TO LOW FAT ADA DIET THIS EVENING. PT ATE 100% AND STATES ABSOLUTELY NO PAIN AT THIS TIME WILL PASS ON TO NIGHT RN IN REPORT. PT IV STARTED LEAKING, CALLED DR PETERS. NEW ORDER FOR NO IV ACCESS. IVF AND IV PAIN MEDS DC'D ZOFRAN CHANGED TO PO. PT HAS NO NEEDED ANY. INSULIN CHANGED TO SS AC HUMALOG PT RECIEVED 5 UNITS WITH DINNER.
--- NOTE | 2019-09-10 04:09 | NUR ---
SHIFT SUMMARY PATIENT HAD NO ACUTE CHANGES OBSERVED. AXOX 4 AND INDEPENDENT IN ROOM. CBG 196. DENIES PAIN, SOB, AND N/V. TAKES MEDICATION WHOLE WITH WATER. VSS/AFEBRILE. USING CPAP AT NIGHT. COOPERATIVE WITH CARE. CALL LIGHT IN REACH. BED IN LOWEST POSITION. WILL CONTINUE TO MONITOR UNTIL DAY SHIFT NURSE ASSUMES CARE.
[2019-09-10] MEDS ORDERED: GEMF600 PO (11:44)
[2019-09-10] MEDS ORDERED: Omega-31000 MG PO (11:45)
[2019-09-10] MEDS ORDERED: ONDA4 PO (12:09)
--- NOTE | 2019-09-10 12:51 | NUR ---
DISCHARGE NOTE- PT WAS GIVEN VERBAL AND WRITTEN DISCHARGE INSTRUCTIONS AND ACKNOWLEDGED UNDERSTANDING OF THEM. NO IV OR TELE PRESENT TO REMOVE AT THE TIME OF DISCHARGE. MEDS FAXED TO [facility] PER PT REQUEST. PT REFUSED WC AND WALKED AT THE TIME OF DISCHARGE, PT WAS ESCORTED OUT BY THE PATIENT CONSUMER MARKETER, HE DROVE HIMSELF TO THE HOSPITAL, PT ESCORTED TO THE PARKING LOT.
== END 2019-09-10 12:24 | disposition home or self-care (01) | DRG 439 ==
LOC: ER 17:04 → MEDS 22:39 → ENPENDDIS 09-10 12:15 → MEDS 09-10 12:24
PROVIDERS: Emergency Medicine; Family Medicine; ADMIT Internal Medicine
DX: K85.91 Acute pancreatitis with uninfected necrosis, unspecified (principal); K86.3 Pseudocyst of pancreas; E66.01 Morbid (severe) obesity due to excess calories; E78.1 Pure hyperglyceridemia; I10 Essential (primary) hypertension; G47.33 Obstructive sleep apnea (adult) (pediatric); Z68.36 Body mass index [BMI] 36.0-36.9, adult; F17.210 Nicotine dependence, cigarettes, uncomplicated; E11.65 Type 2 diabetes mellitus with hyperglycemia; K86.1 Other chronic pancreatitis; E11.40 Type 2 diabetes mellitus with diabetic neuropathy, unspecified; E86.0 Dehydration
CPT/HCPCS: 36415; 74177; 80053; 80061; 80069; 82010; 82947; 83036; 83690; 83735; 85025; 85027; 93005; 93010; 94660; 94762; 96361; 96374-59; 96375; 96376; 99285-25; A9270-GY; J1650; J2405; J3010; J7030; Q9967

== ENCOUNTER 2020-07-01 03:24 | Emergency (ER) | payer OTHER ==
[~2020-07-01] VITALS: Ht 188 cm; Wt 127.0 kg
[~2020-07-01 03:24] MED LIST changes: +ASCO500 PO; +ATOR80 PO; +Aspir 8181 MG PO; +CO Q-10100 MG PO; +FENO160 PO; +INSDET100 SC; +LEVEMIR FL100 UNIT/1 SC; +ONDA4 PO; +Omega-31000 MG PO; +Prinivil10 MG PO; +SERT25 PO; +VITAMIN D350 MCG PO
== END 2020-07-01 04:16 | disposition home or self-care (01) ==
LOC: ER 03:24
DX: S29.012A Strain of muscle and tendon of back wall of thorax, initial encounter (principal); S39.012A Strain of muscle, fascia and tendon of lower back, initial encounter; I10 Essential (primary) hypertension; E11.40 Type 2 diabetes mellitus with diabetic neuropathy, unspecified; F17.210 Nicotine dependence, cigarettes, uncomplicated; Z79.899 Other long term (current) drug therapy; Z79.82 Long term (current) use of aspirin; Z79.4 Long term (current) use of insulin; V59.40XA Driver of pick-up truck or van injured in collision with unspecified motor vehicles in traffic accident, initial encounter; Y92.410 Unspecified street and highway as the place of occurrence of the external cause
CPT/HCPCS: 96372; 99283; J1885

== ENCOUNTER 2021-06-13 07:35 | Emergency (ER) | payer OTHER ==
[~2021-06-13] VITALS: Ht 188 cm; Wt 127.0 kg
[2021-06-13 09:33] LABS: Hematocrit 43.5 % (37.0-53.0); Hemoglobin 15.7 g/dL (13.5-17.5); Mean Corpuscular HGB 32.8 pg (26.0-34.0); Mean Corpuscular Volume 91 fL (80-100); NRBC ABSOLUTE 0.03 K/mm3 (0.00-0.02); NRBC Auto 0.4 /100 WBC (0.0-0.2); Platelet Count 150 K/mm3 (150-400); RDW Coefficient Variation 14.8 % (11.7-14.2); RDW Standard Deviation 49.8 fL (35.1-46.3); Red Blood Cell Count 4.79 M/mm3 (4.30-5.90); White Blood Cell Count 6.99 K/mm3 (4.00-11.30)
[2021-06-13 09:42] LABS: Mean Corpuscular HGB Conc 36.1 g/dL (31.5-36.5)
[2021-06-13 09:49] LABS: Alanine Aminotransfer (ALT/SGP 27 U/L (12-78); Albumin, Blood 3.4 g/dL (3.4-5.0); Albumin/Globulin Ratio 1.1 (0.8-1.8); Alk Phos 66 U/L (50-136); Anion Gap 10 mmol/L (6-16); Aspartate Aminotrans (AST/SGOT 22 U/L (12-37); Bilirubin, Total 0.5 mg/dL (0.1-1.0); Blood Urea Nitrogen 16 mg/dL (8-24); CO2, Blood 21 mmol/L (21-32); Calcium, Blood 8.7 mg/dL (8.5-10.1); Chloride, Blood 110 mmol/L (98-108); Creatinine, Blood 0.59 mg/dL (0.60-1.20); Globulin, Blood 3.2 g/dL (2.2-4.0); Glomerular Filtration Rate >60 (60-); Glucose, Blood 223 mg/dL (70-99); Potassium, Blood 4.1 mmol/L (3.5-5.5); Total Protein, Blood 6.6 g/dL (6.4-8.2)
[2021-06-13 09:59] LABS: Sodium, Blood 141 mmol/L (136-145)
[2021-06-13] MEDS ORDERED: MECL25 PO (11:01)
[2021-06-13 11:10] LABS: BAND PERCENT MAN 1 % (0-8); BASOPHILS PERCENT MAN 0 % (0-2); EOSINOPHILS ABSOLUTE MAN 0.34 K/mm3 (0.00-0.68); EOSINOPHILS PERCENT MAN 5 % (0-6); LYMPHOCYTES PERCENT MAN 33 % (21-46); MONOCYTES ABSOLUTE MAN 0.55 K/mm3 (0.16-1.47); MONOCYTES PERCENT MAN 8 % (4-13); NEUTROPHILS ABSOLUTE MAN 3.77 K/mm3 (1.96-9.15); SEG NEUTROPHILS PERCENT MAN 53 % (41-73); TOTAL CELLS COUNTED 100
[2021-06-13] MEDS ORDERED: FENO160 PO (11:23)
[2021-06-13] MEDS ORDERED: FARXIGA10 MG PO (11:25)
== END 2021-06-13 13:07 | disposition home or self-care (01) ==
LOC: ER 07:35
PROVIDERS: Emergency Medicine
DX: H81.10 Benign paroxysmal vertigo, unspecified ear (principal); I10 Essential (primary) hypertension; G47.33 Obstructive sleep apnea (adult) (pediatric); F17.210 Nicotine dependence, cigarettes, uncomplicated; Z79.899 Other long term (current) drug therapy; Z79.4 Long term (current) use of insulin; Z79.82 Long term (current) use of aspirin
CPT/HCPCS: 36415; 70450; 80053; 82947; 84484; 85025; 93005; 93010; A9270; J2405; J7030